=== PATIENT | male | born 1950 | race Caucasian/White ===

== ENCOUNTER 2019-12-22 04:59 | Inpatient (IN) ==
--- NOTE | 2019-12-17 18:07 | XRay Report ---
CLINICAL INFORMATION: Preop COMPARISON: 05/26/2017 TECHNIQUE: PA and Lateral views FINDINGS: The heart size, mediastinum and pulmonary vessels are unremarkable. The lungs are clear. There are no effusions. Mild chronic wedging mid lower thoracic spine is stable. IMPRESSION: Normal chest. Interpreted and Authenticated by: Aldo Baez 12/17/19
[2019-12-17 19:06] LABS: Prothrombin Time 12.9 sec (11.9-14.5)
[2019-12-17 19:18] LABS: Basophils # (Auto) 0.02 K/mcL (0.00-0.30); Basophils % (Auto) 0.3 % (0.0-2.0); Eosinophils # (Auto) 0.05 K/mcL (0.00-0.70); Eosinophils % (Auto) 0.7 % (0.0-7.0); Granulocytes % (Auto) 70.5 % (38.0-78.0); Hematocrit 37.7 % (40.1-51.0); Hemoglobin 11.6 g/dL (13.7-17.5); Lymphocytes # (Auto) 1.07 K/mcL (1.50-4.80); Lymphocytes % (Auto) 14.7 % (15.5-49.0); Mean Cell Volume 76.3 fL (80.0-100.0); Mean Corpuscular HGB Conc 30.8 g/dL (31.0-36.0); Monocytes # (Auto) 1.01 K/mcL (0.10-0.90); Monocytes % (Auto) 13.8 % (1.0-12.0); Platelet Count 101 K/mcL (140-440); RBC 4.94 M/mcL (4.63-6.08); Red Cell Distribution Width 15.8 % (11.5-14.5); WBC 7.3 K/mcL (4.50-11.00)
[2019-12-17 19:28] LABS: ALT/SGPT 63 U/l (0-40); AST/SGOT 89 U/l (0-37); Albumin/Globulin Ratio 0.9 (1.0-2.3); Alkaline Phosphatase 103 U/L (39-117); Bilirubin,Total 0.7 mg/dL (0.0-1.0); Blood Urea Nitrogen 14 mg/dl (8-23); Calcium 9.3 mg/dl (8.6-10.4); Carbon Dioxide 23 mmol/L (22-30); Chloride 97 mmol/L (96-108); Globulin 4.3 gm/dL (2.2-3.7); Glomerular Filtration Rate 69; Glucose 88 mg/dL (70-105)
[2019-12-22] MEDS ORDERED: SCOPOLAMINE 1 PATCH PATCH TOPICAL PRN (05:00)
[2019-12-22] MEDS ORDERED: IPRATROPIUM/ALBUTEROL 3 ML AMPUL.NEB NEB PRN ×3 (05:00→09:31)
[2019-12-22] MEDS ORDERED: metroNIDAZOLE 500 MG/100 ML BAG IV SCH ×2 (06:00→12:23)
[2019-12-22] MEDS ORDERED: CIPROFLOXACIN 400 MG/200 ML BAG IV SCH ×2 (06:00→12:23)
[2019-12-22] MEDS ORDERED: MAGNESIUM SULFATE 2 GM/50 ML BAG IV ONE ×3 (07:26→12:23)
[2019-12-22] MEDS ORDERED: ALBUMIN HUMAN 25 GM/100 ML BAG IV ONE ×3 (07:35→12:23)
[2019-12-22] MEDS ORDERED: ROPIVACAINE HCL/PF 20 ML VIAL IJ ONE (07:45)
[2019-12-22] MEDS ORDERED: SUGAMMADEX SODIUM 200 MG/2 ML VIAL IV ONE (07:45)
[2019-12-22] MEDS ORDERED: PHENYLEPHRINE 10 MG/ML VIAL IV ONE (07:45)
[2019-12-22] MEDS ORDERED: METOPROLOL TARTRATE 5 MG/5 ML VIAL IV ONE (07:45)
[2019-12-22] MEDS ORDERED: DEXAMETHASONE 10 MG/ML VIAL IV ONE (07:45)
[2019-12-22] MEDS ORDERED: GLYCOPYRROLATE 0.2 MG/ML VIAL IV ONE (07:45)
[2019-12-22] MEDS ORDERED: ESMOLOL 100 MG/10 ML VIAL IV ONE (07:45)
[2019-12-22] MEDS ORDERED: KETAMINE 100 MG/ML ML IV ONE (07:45)
[2019-12-22] MEDS ORDERED: ROCURONIUM 10 MG/ML ML IV ONE (07:45)
[2019-12-22] MEDS ORDERED: ONDANSETRON 4 MG/2 ML VIAL IV ONE (07:45)
[2019-12-22] MEDS ORDERED: MIDAZOLAM 2 MG/2 ML VIAL IV ONE (07:45)
[2019-12-22] MEDS ORDERED: fentaNYL 250 MCG/5 ML VIAL IV ONE (07:45)
[2019-12-22] MEDS ORDERED: PROPOFOL 200 MG/20 ML VIAL IV ONE (07:45)
[2019-12-22] MEDS ORDERED: LIDOCAINE HCL/PF 100 MG/5 ML SYRINGE IV ONE (07:45)
[2019-12-22] MEDS ORDERED: METHOCARBAMOL 1,000 MG/10 ML VIAL IV PRN ×2 (08:31→09:31)
[2019-12-22] MEDS ORDERED: ATROPINE SULFATE 0.4 MG/ML VIAL IV PRN (08:31)
[2019-12-22] MEDS ORDERED: HYDROmorphone 2 MG/ML VIAL IV PRN (08:31)
[2019-12-22] MEDS ORDERED: METOPROLOL TARTRATE 5 MG/5 ML VIAL IV PRN ×2 (08:31→09:31)
[2019-12-22] MEDS ORDERED: NALOXONE HCL 0.4 MG/ML VIAL IV PRN ×2 (08:31→09:31)
[2019-12-22] MEDS ORDERED: fentaNYL 100 MCG/2 ML VIAL IV PRN ×2 (08:31→09:31)
[2019-12-22] MEDS ORDERED: ePHEDrine 50 MG/ML AMPUL IV PRN (08:31)
[2019-12-22] MEDS ORDERED: ONDANSETRON 4 MG/2 ML VIAL IV PRN ×2 (08:31→12:23)
[2019-12-22] MEDS ORDERED: diphenhydrAMINE 50 MG/ML VIAL IV PRN (08:31)
[2019-12-22] MEDS ORDERED: PROMETHAZINE 25 MG/ML VIAL IV PRN (08:31)
[2019-12-22] MEDS ORDERED: FLUMAZENIL 0.1 MG/ML ML IV PRN ×2 (08:31→09:31)
[2019-12-22] MEDS ORDERED: LACTATED RINGERS 1,000 ML IV SCH ×2 (08:45→09:45)
[2019-12-22] MEDS ORDERED: LACTATED RINGERS 250 ML IV PRN (09:31)
[2019-12-22] MEDS ORDERED: LABETALOL 5 MG/ML ML IV PRN (09:31)
[2019-12-22] MEDS ORDERED: ACETAMINOPHEN 1,000 MG/100 ML BOTTLE IV ONE (09:31)
[2019-12-22] MEDS ORDERED: BACITRACIN 50,000 UNIT VIAL IR ONE (09:37)
--- NOTE | 2019-12-22 10:07 | Brief Operative Note ---
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
[2019-12-22] MEDS: HYDROmorphone 2 MG/ML VIAL IV PRN ×4 (12:50→21:07)
[2019-12-22] MEDS: METOCLOPRAMIDE 10 MG/2 ML VIAL IV SCH ×2 (12:50→17:36)
[2019-12-22] MEDS: LACTATED RINGERS 1,000 ML IV SCH ×2 (12:52→21:09)
[2019-12-22] MEDS: PIPERACILLIN SODIUM/TAZOBACTAM 3.375 GM in DEXTROSE 5% IN WATER 50 ML IV SCH ×2 (13:01→18:50)
[2019-12-22] MEDS: 0.9 % SODIUM CHLORIDE 10 ML SYRINGE IV SCH (14:16)
[2019-12-22] MEDS: metroNIDAZOLE 500 MG/100 ML BAG IV SCH ×2 (15:13→21:32)
[2019-12-22] MEDS: PANTOPRAZOLE 40 MG VIAL IV SCH (17:36)
[2019-12-23] MEDS: 0.9 % SODIUM CHLORIDE 10 ML SYRINGE IV SCH ×3 (00:30→14:30)
[2019-12-23] MEDS: PIPERACILLIN SODIUM/TAZOBACTAM 3.375 GM in DEXTROSE 5% IN WATER 50 ML IV SCH ×3 (00:31→11:10)
[2019-12-23] MEDS: METOCLOPRAMIDE 10 MG/2 ML VIAL IV SCH ×4 (00:37→17:33)
[2019-12-23] MEDS: HYDROmorphone 2 MG/ML VIAL IV PRN ×9 (00:38→23:01)
[2019-12-23] MEDS: metroNIDAZOLE 500 MG/100 ML BAG IV SCH ×3 (05:14→23:04)
[2019-12-23] MEDS: PANTOPRAZOLE 40 MG VIAL IV SCH ×2 (07:06→17:32)
[2019-12-23] MEDS: LACTATED RINGERS 1,000 ML IV SCH ×2 (07:07→14:39)
--- NOTE | 2019-12-23 13:09 | Surgical Pathology Report ---
HISTOLOGY SPECIMEN MICROSCOPIC DIAGNOSIS SOFT TISSUE, ABDOMINAL WALL, EXCISION: -- SKIN WITH GRANULATION TISSUE, FOREIGN BODY GIANT CELL REACTION AND MUCINOUS MATERIAL WITH DERMAL SUPERFICIAL AND DEEP PERIVASCULAR CHRONIC INFLAMMATION. -- NO PORTION OF BOWEL IDENTIFIED. -- NO DYSPLASIA OR MALIGNANCY IDENTIFIED. (EBD:adj) PROCEDURAL IMPRESSION Enterocutaneous fistula. GROSS DESCRIPTION Received in formalin labeled fistula, is a 4.5 x 2.5 by up to 2.4 cm white to pink-saleh soft tissue fragment. There is a 2.4 x 1.5 cm attached ellipse of white-saleh skin. Off-centered there is a 0.1 cm in diameter sunken area. The margin is inked black. Sectioning reveals a possible tract associated with the previously described sunken area on the skin surface. Property Staff Accountant sections submitted - two cassettes. (STS:sln) Electronically Signed by: Eve Erwin M.D.
[2019-12-23 13:11] LABS: Basophils # (Auto) 0.01 K/mcL (0.00-0.30); Basophils % (Auto) 0.1 % (0.0-2.0); Eosinophils # (Auto) 0 K/mcL (0.00-0.70); Eosinophils % (Auto) 0 % (0.0-7.0); Granulocytes % (Auto) 80.7 % (38.0-78.0); Hematocrit 28.2 % (40.1-51.0); Hemoglobin 8.8 g/dL (13.7-17.5); Lymphocytes # (Auto) 0.75 K/mcL (1.50-4.80); Lymphocytes % (Auto) 7.4 % (15.5-49.0); Mean Cell Volume 75.8 fL (80.0-100.0); Mean Corpuscular HGB Conc 31.2 g/dL (31.0-36.0); Mean Platelet Volume 12.1 fL (7.4-10.4); Monocytes % (Auto) 11.8 % (1.0-12.0); Platelet Count 102 K/mcL (140-440); RBC 3.72 M/mcL (4.63-6.08); Red Cell Distribution Width 15.9 % (11.5-14.5); WBC 10.1 K/mcL (4.50-11.00)
[2019-12-23 13:13] LABS: ALT/SGPT 30 U/l (0-40); AST/SGOT 41 U/l (0-37); Albumin 3.2 gm/dL (3.2-5.2); Albumin/Globulin Ratio 0.9 (1.0-2.3); Alkaline Phosphatase 66 U/L (39-117); Bilirubin,Direct 0.3 mg/dL (0.0-0.3); Bilirubin,Total 0.8 mg/dL (0.0-1.0); Blood Urea Nitrogen 12 mg/dl (8-23); Calcium 8.7 mg/dl (8.6-10.4); Carbon Dioxide 26 mmol/L (22-30); Chloride 101 mmol/L (96-108); Globulin 3.5 gm/dL (2.2-3.7); Glomerular Filtration Rate 69; Glucose 112 mg/dL (70-105); Lactate Dehydrogenase 189 U/L (94-250); Triglycerides 37 mg/dl (<150); Uric Acid 4.4 mg/dL (2.5-8.0)
[2019-12-23 13:16] LABS: Phosphorous 2.1 mg/dL (2.7-4.5)
[2019-12-23] MEDS: CEFEPIME 2 GM VIAL IV SCH (17:32)
--- NOTE | 2019-12-23 18:54 | General Surgery Progress Note ---
Subjective Narrative: Note initiated : 12/23/19 at 6:54 pm Service Date, if different from initiated Date: [] Patient: John Carbajal 69 y/o M admitted on 12/22/19 for Abdominal Wall Mesh Exploration with Resection. Chief Complaint: [] Objective Temp Pulse Resp BP Pulse Ox 99.1 F H 104 H 17 166/79 95 12/23/19 16:00 12/23/19 16:00 12/23/19 16:00 12/23/19 16:00 12/23/19 16:00 - Additional Data Intake & Output - Last 24 hours: Intake & Output 12/21/19 12/22/19 12/23/19 12/24/19 05:59 05:59 05:59 05:59 Intake Total 4727 2250 Output Total 7367 0220 Balance 2792 -290 Weight 160 lb 12.8 oz 172 lb 11.2 oz 172 lb 11.2 oz - Labs 12/23/19 12:15 12/23/19 12:16 Diabetes panel 12/23/19 Range/Units 12:16 Sodium 136 (133-145) mmol/L Potassium 4.2 (3.3-5.1) mmol/L Chloride 101 (96-108) mmol/L Carbon Dioxide 26 (22-30) mmol/L BUN 12 (8-23) mg/dl Creatinine 1.1 (0.7-1.2) mg/dl Glucose 112 H (70-105) mg/dL Calcium 8.7 (8.6-10.4) mg/dl AST 41 H (0-37) U/l ALT 30 (0-40) U/l Alkaline Phosphatase 66 (39-117) U/L Total Protein 6.7 (5.9-8.4) gm/dL Albumin 3.2 (3.2-5.2) gm/dL Triglycerides 37 (<150) mg/dl Calcium panel 12/23/19 Range/Units 12:16 Calcium 8.7 (8.6-10.4) mg/dl Phosphorus 2.1 L (2.7-4.5) mg/dL Albumin 3.2 (3.2-5.2) gm/dL Pituitary panel 12/23/19 Range/Units 12:16 Sodium 136 (133-145) mmol/L Potassium 4.2 (3.3-5.1) mmol/L Chloride 101 (96-108) mmol/L Carbon Dioxide 26 (22-30) mmol/L BUN 12 (8-23) mg/dl Creatinine 1.1 (0.7-1.2) mg/dl Glucose 112 H (70-105) mg/dL Calcium 8.7 (8.6-10.4) mg/dl Adrenal panel 12/23/19 Range/Units 12:16 Sodium 136 (133-145) mmol/L Potassium 4.2 (3.3-5.1) mmol/L Chloride 101 (96-108) mmol/L Carbon Dioxide 26 (22-30) mmol/L BUN 12 (8-23) mg/dl Creatinine 1.1 (0.7-1.2) mg/dl Glucose 112 H (70-105) mg/dL Calcium 8.7 (8.6-10.4) mg/dl Total Bilirubin 0.8 (0.0-1.0) mg/dL AST 41 H (0-37) U/l ALT 30 (0-40) U/l Alkaline Phosphatase 66 (39-117) U/L Total Protein 6.7 (5.9-8.4) gm/dL Albumin 3.2 (3.2-5.2) gm/dL Assessment and Plan - Time Spent With Patient Total time spent is greater than 50% in coordination of care (as documented) at patient's floor/unit and/or counseling patient:
[2019-12-24] MEDS: CEFEPIME 2 GM VIAL IV SCH ×4 (00:50→23:40)
[2019-12-24] MEDS: LACTATED RINGERS 1,000 ML IV SCH ×5 (00:52→20:11)
[2019-12-24] MEDS: 0.9 % SODIUM CHLORIDE 10 ML SYRINGE IV SCH ×4 (00:52→22:29)
[2019-12-24] MEDS: METOCLOPRAMIDE 10 MG/2 ML VIAL IV SCH ×5 (00:53→23:45)
[2019-12-24] MEDS: HYDROmorphone 2 MG/ML VIAL IV PRN ×7 (01:13→22:24)
[2019-12-24] MEDS: metroNIDAZOLE 500 MG/100 ML BAG IV SCH ×3 (05:44→22:35)
[2019-12-24 06:59] LABS: Basophils # (Auto) 0.03 K/mcL (0.00-0.30); Basophils % (Auto) 0.3 % (0.0-2.0); Eosinophils # (Auto) 0.06 K/mcL (0.00-0.70); Eosinophils % (Auto) 0.6 % (0.0-7.0); Granulocytes % (Auto) 77.5 % (38.0-78.0); Hematocrit 28.3 % (40.1-51.0); Hemoglobin 8.7 g/dL (13.7-17.5); Lymphocytes # (Auto) 0.84 K/mcL (1.50-4.80); Mean Cell Volume 77.1 fL (80.0-100.0); Mean Corpuscular HGB Conc 30.7 g/dL (31.0-36.0); Mean Platelet Volume 10.7 fL (7.4-10.4); Monocytes # (Auto) 1.17 K/mcL (0.10-0.90); Monocytes % (Auto) 12.6 % (1.0-12.0); Platelet Count 89 K/mcL (140-440); RBC 3.67 M/mcL (4.63-6.08); Red Cell Distribution Width 15.9 % (11.5-14.5); WBC 9.3 K/mcL (4.50-11.00)
[2019-12-24 07:37] LABS: ALT/SGPT 26 U/l (0-40); AST/SGOT 39 U/l (0-37); Albumin 3.1 gm/dL (3.2-5.2); Albumin/Globulin Ratio 0.9 (1.0-2.3); Alkaline Phosphatase 62 U/L (39-117); Bilirubin,Direct 0.3 mg/dL (0.0-0.3); Bilirubin,Total 0.7 mg/dL (0.0-1.0); Blood Urea Nitrogen 11 mg/dl (8-23); Calcium 8.5 mg/dl (8.6-10.4); Carbon Dioxide 25 mmol/L (22-30); Chloride 100 mmol/L (96-108); Globulin 3.4 gm/dL (2.2-3.7); Glomerular Filtration Rate 77; Glucose 90 mg/dL (70-105); Lactate Dehydrogenase 152 U/L (94-250); Triglycerides 56 mg/dl (<150); Uric Acid 4.6 mg/dL (2.5-8.0)
[2019-12-24 07:39] LABS: Phosphorous 2.1 mg/dL (2.7-4.5)
[2019-12-24] MEDS: PANTOPRAZOLE 40 MG VIAL IV SCH ×2 (09:37→18:02)
[2019-12-24] MEDS: POTASSIUM PHOSPHATE 40 MEQ in DEXTROSE 5% IN WATER 500 ML IV SCH ×2 (16:00→23:47)
--- NOTE | 2019-12-24 16:10 | General Surgery Progress Note ---
Subjective Patient reports: feels better, pain is less, no flatus, no bowel movement, afebrile Narrative: Note initiated : 12/24/19 at 4:07 pm Service Date, if different from initiated Date: [] Patient: John Carbajal 69 y/o M admitted on 12/22/19 for Abdominal Wall Mesh Exploration with Resection. Chief Complaint: [Patient states that he feels stable. He has not had flatus or bowel movement. He denies nausea. White blood count 9.3; hemoglobin 8.7; hematocrit 28.3, phosphorus 3.1.] Objective Temp Pulse Resp BP Pulse Ox 99.2 F H 102 H 14 156/88 96 12/24/19 11:36 12/24/19 11:36 12/24/19 11:36 12/24/19 11:36 12/24/19 11:36 - Additional Data Intake & Output - Last 24 hours: Intake & Output 12/22/19 12/23/19 12/24/19 12/25/19 05:59 05:59 05:59 05:59 Intake Total 4760 3410 1200 Output Total 1968 3765 650 Balance 2792 -355 550 Weight 160 lb 12.8 oz 172 lb 11.2 oz 177 lb - General physical appearance well developed, well nourished, no distress, moderate pain - Eyes PERRL, normal ocular movement - ENT normal pinna, normal nares, normal mucosa, no hearing loss, no congestion - Neck no masses, no bruits, trachea midline, no lymphadenopathy, no venous distension - Respiratory normal expansion, normal respiratory effort, clear to auscultation - Cardiovascular Cardiovascular exam: Present: normal rate and rhythm, RRR, +S1, +S2 (Zyrtec). Absent: JVD, tachycardia - Abdomen non tender, bowel sounds (present), surgical scars (none), masses (none) - Integumentary no rash, no growths, no abnormal pigmentation - Neurologic normal coordination, normal sensation - Musculoskeletal normal gait, normal posture - Psychiatric oriented to time, oriented to person, oriented to place, speech is normal, memory intact - Labs 12/24/19 06:01 12/24/19 06:01 Diabetes panel 12/24/19 Range/Units 06:01 Sodium 135 (133-145) mmol/L Potassium 3.9 (3.3-5.1) mmol/L Chloride 100 (96-108) mmol/L Carbon Dioxide 25 (22-30) mmol/L BUN 11 (8-23) mg/dl Creatinine 1.0 (0.7-1.2) mg/dl Glucose 90 (70-105) mg/dL Calcium 8.5 L (8.6-10.4) mg/dl AST 39 H (0-37) U/l ALT 26 (0-40) U/l Alkaline Phosphatase 62 (39-117) U/L Total Protein 6.5 (5.9-8.4) gm/dL Albumin 3.1 L (3.2-5.2) gm/dL Triglycerides 56 (<150) mg/dl Calcium panel 12/24/19 Range/Units 06:01 Calcium 8.5 L (8.6-10.4) mg/dl Phosphorus 2.1 L (2.7-4.5) mg/dL Albumin 3.1 L (3.2-5.2) gm/dL Pituitary panel 12/24/19 Range/Units 06:01 Sodium 135 (133-145) mmol/L Potassium 3.9 (3.3-5.1) mmol/L Chloride 100 (96-108) mmol/L Carbon Dioxide 25 (22-30) mmol/L BUN 11 (8-23) mg/dl Creatinine 1.0 (0.7-1.2) mg/dl Glucose 90 (70-105) mg/dL Calcium 8.5 L (8.6-10.4) mg/dl Adrenal panel 12/24/19 Range/Units 06:01 Sodium 135 (133-145) mmol/L Potassium 3.9 (3.3-5.1) mmol/L Chloride 100 (96-108) mmol/L Carbon Dioxide 25 (22-30) mmol/L BUN 11 (8-23) mg/dl Creatinine 1.0 (0.7-1.2) mg/dl Glucose 90 (70-105) mg/dL Calcium 8.5 L (8.6-10.4) mg/dl Total Bilirubin 0.7 (0.0-1.0) mg/dL AST 39 H (0-37) U/l ALT 26 (0-40) U/l Alkaline Phosphatase 62 (39-117) U/L Total Protein 6.5 (5.9-8.4) gm/dL Albumin 3.1 L (3.2-5.2) gm/dL Assessment and Plan (1) Enterocutaneous fistula Status: Acute Assessment and plan: Continue present therapy. Discontinue Juarez catheter. Replace potassium phosphate Current Visit: Yes (2) Hypertension Status: Chronic Current Visit: No (3) Gastroesophageal reflux disease with stricture Status: Chronic Current Visit: No - Time Spent With Patient Total time spent is greater than 50% in coordination of care (as documented) at patient's floor/unit and/or counseling patient:
[2019-12-25] MEDS: HYDROmorphone 2 MG/ML VIAL IV PRN ×6 (00:19→20:53)
[2019-12-25] MEDS: LACTATED RINGERS 1,000 ML IV SCH ×4 (04:49→16:42)
[2019-12-25] MEDS: metroNIDAZOLE 500 MG/100 ML BAG IV SCH ×3 (06:27→22:07)
[2019-12-25] MEDS: 0.9 % SODIUM CHLORIDE 10 ML SYRINGE IV SCH ×3 (06:27→22:08)
[2019-12-25] MEDS: METOCLOPRAMIDE 10 MG/2 ML VIAL IV SCH ×3 (06:27→18:44)
[2019-12-25 06:44] LABS: Basophils # (Auto) 0.01 K/mcL (0.00-0.30); Basophils % (Auto) 0.1 % (0.0-2.0); Eosinophils # (Auto) 0.14 K/mcL (0.00-0.70); Eosinophils % (Auto) 2.1 % (0.0-7.0); Granulocytes % (Auto) 76.9 % (38.0-78.0); Hematocrit 26.7 % (40.1-51.0); Hemoglobin 8.3 g/dL (13.7-17.5); Lymphocytes # (Auto) 0.58 K/mcL (1.50-4.80); Lymphocytes % (Auto) 8.7 % (15.5-49.0); Mean Cell Volume 75.4 fL (80.0-100.0); Mean Corpuscular HGB Conc 31.1 g/dL (31.0-36.0); Mean Platelet Volume 10.8 fL (7.4-10.4); Monocytes # (Auto) 0.82 K/mcL (0.10-0.90); Monocytes % (Auto) 12.2 % (1.0-12.0); Platelet Count 111 K/mcL (140-440); RBC 3.54 M/mcL (4.63-6.08); Red Cell Distribution Width 15.6 % (11.5-14.5); WBC 6.7 K/mcL (4.50-11.00)
[2019-12-25 07:14] LABS: ALT/SGPT 23 U/l (0-40); AST/SGOT 37 U/l (0-37); Albumin 2.8 gm/dL (3.2-5.2); Albumin/Globulin Ratio 0.9 (1.0-2.3); Alkaline Phosphatase 62 U/L (39-117); Bilirubin,Direct 0.4 mg/dL (0.0-0.3); Bilirubin,Total 0.7 mg/dL (0.0-1.0); Blood Urea Nitrogen 8 mg/dl (8-23); Calcium 8.6 mg/dl (8.6-10.4); Carbon Dioxide 27 mmol/L (22-30); Chloride 94 mmol/L (96-108); Globulin 3.2 gm/dL (2.2-3.7); Glomerular Filtration Rate 92; Glucose 113 mg/dL (70-105); Lactate Dehydrogenase 183 U/L (94-250); Phosphorous 3.1 mg/dL (2.7-4.5); Triglycerides 46 mg/dl (<150); Uric Acid 4.7 mg/dL (2.5-8.0)
[2019-12-25] MEDS: CEFEPIME 2 GM VIAL IV SCH ×2 (09:00→16:34)
[2019-12-25] MEDS: PANTOPRAZOLE 40 MG VIAL IV SCH ×2 (09:00→16:45)
--- NOTE | 2019-12-25 13:52 | General Surgery Progress Note ---
Subjective Patient reports: feels better, pain is less, tolerating liquids well, flatus, no bowel movement, afebrile Narrative: Note initiated : 12/25/19 at 1:50 pm Service Date, if different from initiated Date: [] Patient: John Carbajal 69 y/o M admitted on 12/22/19 for Abdominal Wall Mesh Exploration with Resection. Chief Complaint: [Patient is slowly improving. He has been afebrile and is having less abdominal distention. He is started passing gas yesterday and has continued. He's not had a bowel movement so for. CAM drainage is decreasing. White blood count 617, hemoglobin 8.3, hematocrit 26.7, magnesium 1.5] Objective Temp Pulse Resp BP Pulse Ox 99.2 F H 86 16 170/87 98 12/25/19 12:00 12/25/19 12:00 12/25/19 12:00 12/25/19 12:00 12/25/19 12:00 - Additional Data Intake & Output - Last 24 hours: Intake & Output 12/23/19 12/24/19 12/25/19 12/26/19 05:59 05:59 05:59 05:59 Intake Total 4760 3410 4224.0909 685 Output Total 1968 3765 2578 225 Balance 2792 -355 1646.0909 460 Weight 172 lb 11.2 oz 177 lb 177 lb 9.6 oz - General physical appearance well developed, well nourished, no distress - Eyes PERRL, normal ocular movement - ENT normal pinna, normal nares, normal mucosa, no hearing loss, no congestion - Neck no masses, no bruits, trachea midline, no lymphadenopathy, no venous distension - Respiratory normal expansion, normal respiratory effort, clear to auscultation - Cardiovascular Cardiovascular exam: Present: normal rate and rhythm, RRR, +S1, +S2. Absent: JVD, tachycardia - Abdomen tender (mild incisional tenderness; active bowel sounds; less distention), bowel sounds (present), surgical scars (none), masses (none) - Integumentary no rash, no growths, no abnormal pigmentation - Neurologic normal coordination, normal sensation - Musculoskeletal normal gait, normal posture - Psychiatric oriented to time, oriented to person, oriented to place, speech is normal, memor y intact - Labs 12/25/19 05:56 12/25/19 05:56 Diabetes panel 12/25/19 Range/Units 05:56 Sodium 131 L (133-145) mmol/L Potassium 3.7 (3.3-5.1) mmol/L Chloride 94 L (96-108) mmol/L Carbon Dioxide 27 (22-30) mmol/L BUN 8 (8-23) mg/dl Creatinine 0.8 (0.7-1.2) mg/dl Glucose 113 H (70-105) mg/dL Calcium 8.6 (8.6-10.4) mg/dl AST 37 (0-37) U/l ALT 23 (0-40) U/l Alkaline Phosphatase 62 (39-117) U/L Total Protein 6.0 (5.9-8.4) gm/dL Albumin 2.8 L (3.2-5.2) gm/dL Triglycerides 46 (<150) mg/dl Calcium panel 12/25/19 Range/Units 05:56 Calcium 8.6 (8.6-10.4) mg/dl Phosphorus 3.1 (2.7-4.5) mg/dL Albumin 2.8 L (3.2-5.2) gm/dL Pituitary panel 12/25/19 Range/Units 05:56 Sodium 131 L (133-145) mmol/L Potassium 3.7 (3.3-5.1) mmol/L Chloride 94 L (96-108) mmol/L Carbon Dioxide 27 (22-30) mmol/L BUN 8 (8-23) mg/dl Creatinine 0.8 (0.7-1.2) mg/dl Glucose 113 H (70-105) mg/dL Calcium 8.6 (8.6-10.4) mg/dl Adrenal panel 12/25/19 Range/Units 05:56 Sodium 131 L (133-145) mmol/L Potassium 3.7 (3.3-5.1) mmol/L Chloride 94 L (96-108) mmol/L Carbon Dioxide 27 (22-30) mmol/L BUN 8 (8-23) mg/dl Creatinine 0.8 (0.7-1.2) mg/dl Glucose 113 H (70-105) mg/dL Calcium 8.6 (8.6-10.4) mg/dl Total Bilirubin 0.7 (0.0-1.0) mg/dL AST 37 (0-37) U/l ALT 23 (0-40) U/l Alkaline Phosphatase 62 (39-117) U/L Total Protein 6.0 (5.9-8.4) gm/dL Albumin 2.8 L (3.2-5.2) gm/dL Assessment and Plan (1) Enterocutaneous fistula Status: Acute Assessment and plan: Continue present therapy. Magnesium rider. Clear liquids Current Visit: Yes (2) Hypertension Status: Chronic Current Visit: No (3) Gastroesophageal reflux disease with stricture Status: Chronic Current Visit: No - Time Spent With Patient Total time spent is greater than 50% in coordination of care (as documented) at patient's floor/unit and/or counseling patient:
[2019-12-25] MEDS ORDERED: MAGNESIUM SULFATE 4 GM/100 ML BAG IV ONE (14:15)
[2019-12-26] MEDS: HYDROmorphone 2 MG/ML VIAL IV PRN ×7 (01:07→23:47)
[2019-12-26] MEDS: LACTATED RINGERS 1,000 ML IV SCH ×4 (01:09→19:09)
[2019-12-26] MEDS: METOCLOPRAMIDE 10 MG/2 ML VIAL IV SCH ×5 (05:49→23:47)
[2019-12-26] MEDS: metroNIDAZOLE 500 MG/100 ML BAG IV SCH ×3 (05:49→21:51)
[2019-12-26] MEDS: 0.9 % SODIUM CHLORIDE 10 ML SYRINGE IV SCH ×3 (05:50→21:14)
[2019-12-26 06:27] LABS: Basophils # (Auto) 0.01 K/mcL (0.00-0.30); Basophils % (Auto) 0.2 % (0.0-2.0); Eosinophils # (Auto) 0.21 K/mcL (0.00-0.70); Eosinophils % (Auto) 3.8 % (0.0-7.0); Granulocytes % (Auto) 68.2 % (38.0-78.0); Hematocrit 27.6 % (40.1-51.0); Hemoglobin 8.5 g/dL (13.7-17.5); Lymphocytes % (Auto) 10.9 % (15.5-49.0); Mean Cell Volume 76.2 fL (80.0-100.0); Mean Corpuscular HGB Conc 30.8 g/dL (31.0-36.0); Mean Platelet Volume 10.9 fL (7.4-10.4); Monocytes # (Auto) 0.93 K/mcL (0.10-0.90); Monocytes % (Auto) 16.9 % (1.0-12.0); Platelet Count 118 K/mcL (140-440); RBC 3.62 M/mcL (4.63-6.08); Red Cell Distribution Width 15.8 % (11.5-14.5); WBC 5.5 K/mcL (4.50-11.00)
[2019-12-26 06:58] LABS: ALT/SGPT 23 U/l (0-40); AST/SGOT 42 U/l (0-37); Albumin 2.8 gm/dL (3.2-5.2); Albumin/Globulin Ratio 0.9 (1.0-2.3); Alkaline Phosphatase 61 U/L (39-117); Bilirubin,Total 0.5 mg/dL (0.0-1.0); Blood Urea Nitrogen 9 mg/dl (8-23); Calcium 8.5 mg/dl (8.6-10.4); Carbon Dioxide 28 mmol/L (22-30); Globulin 3.1 gm/dL (2.2-3.7); Glomerular Filtration Rate 87; Glucose 102 mg/dL (70-105); Lactate Dehydrogenase 166 U/L (94-250); Triglycerides 61 mg/dl (<150)
[2019-12-26 07:00] LABS: Bilirubin,Direct 0.3 mg/dL (0.0-0.3); Chloride 93 mmol/L (96-108); Phosphorous 1.9 mg/dL (2.7-4.5)
[2019-12-26] MEDS: PANTOPRAZOLE 40 MG VIAL IV SCH ×2 (08:43→17:31)
[2019-12-26] MEDS: CEFEPIME 2 GM VIAL IV SCH ×2 (09:08)
--- NOTE | 2019-12-26 13:20 | General Surgery Progress Note ---
Subjective Patient reports: feels better, pain is less, flatus, afebrile Narrative: Note initiated : 12/26/19 at 1:18 pm Service Date, if different from initiated Date: [] Patient: John Carbajal 69 y/o M admitted on 12/22/19 for Abdominal Wall Mesh Exploration with Resection. Chief Complaint: [patient continues to improve. He tolerated the liquids without difficulty. White blood count 5.5, hemoglobin 8.5, hematocrit 27.6, phosphorus 1.9. Pain is well controlled.] Objective Temp Pulse Resp BP Pulse Ox 98.8 F 85 16 146/78 90 12/26/19 12:00 12/26/19 08:00 12/26/19 12:00 12/26/19 12:00 12/26/19 12:00 - Additional Data Intake & Output - Last 24 hours: Intake & Output 12/24/19 12/25/19 12/26/19 12/27/19 05:59 05:59 05:59 05:59 Intake Total 3410 4224.0909 3010 1198 Output Total 3765 2578 2501 870 Balance -355 1646.0909 509 328 Weight 177 lb 177 lb 9.6 oz 177 lb 14.4 oz - General physical appearance well developed, well nourished, no distress, moderate pain - Eyes PERRL, normal ocular movement - ENT normal pinna, normal nares, normal mucosa, no hearing loss, no congestion - Neck no masses, no bruits, trachea midline, no lymphadenopathy, no venous distension - Respiratory normal expansion, normal respiratory effort, clear to auscultation - Cardiovascular Cardiovascular exam: Present: normal rate and rhythm, RRR, +S1, +S2. Absent: JVD, tachycardia - Abdomen non tender, tender (mild incisional tenderness; good active bowel sounds; incision looks good), bowel sounds (present), surgical scars (none), masses (none) - Integumentary no rash (. We will), no growths, no abnormal pigmentation - Neurologic normal coordination, normal sensation - Musculoskeletal normal gait, normal posture - Psychiatric oriented to time, oriented to person, oriented to place, speech is normal, memory intact - Labs 12/26/19 05:38 12/26/19 05:38 Diabetes panel 12/26/19 Range/Units 05:38 Sodium 131 L (133-145) mmol/L Potassium 3.7 (3.3-5.1) mmol/L Chloride 93 L (96-108) mmol/L Carbon Dioxide 28 (22-30) mmol/L BUN 9 (8-23) mg/dl Creatinine 0.9 (0.7-1.2) mg/dl Glucose 102 (70-105) mg/dL Calcium 8.5 L (8.6-10.4) mg/dl AST 42 H (0-37) U/l ALT 23 (0-40) U/l Alkaline Phosphatase 61 (39-117) U/L Total Protein 5.9 (5.9-8.4) gm/dL Albumin 2.8 L (3.2-5.2) gm/dL Triglycerides 61 (<150) mg/dl Calcium panel 12/26/19 Range/Units 05:38 Calcium 8.5 L (8.6-10.4) mg/dl Phosphorus 1.9 L (2.7-4.5) mg/dL Albumin 2.8 L (3.2-5.2) gm/dL Pituitary panel 12/26/19 Range/Units 05:38 Sodium 131 L (133-145) mmol/L Potassium 3.7 (3.3-5.1) mmol/L Chloride 93 L (96-108) mmol/L Carbon Dioxide 28 (22-30) mmol/L BUN 9 (8-23) mg/dl Creatinine 0.9 (0.7-1.2) mg/dl Glucose 102 (70-105) mg/dL Calcium 8.5 L (8.6-10.4) mg/dl Adrenal panel 12/26/19 Range/Units 05:38 Sodium 131 L (133-145) mmol/L Potassium 3.7 (3.3-5.1) mmol/L Chloride 93 L (96-108) mmol/L Carbon Dioxide 28 (22-30) mmol/L BUN 9 (8-23) mg/dl Creatinine 0.9 (0.7-1.2) mg/dl Glucose 102 (70-105) mg/dL Calcium 8.5 L (8.6-10.4) mg/dl Total Bilirubin 0.5 (0.0-1.0) mg/dL AST 42 H (0-37) U/l ALT 23 (0-40) U/l Alkaline Phosphatase 61 (39-117) U/L Total Protein 5.9 (5.9-8.4) gm/dL Albumin 2.8 L (3.2-5.2) gm/dL Assessment and Plan (1) Enterocutaneous fistula Status: Acute Assessment and plan: Continue present therapy. Potassium phosphate right ear. Clear liquids. Switch antibiotics to clindamycin Current Visit: Yes (2) Hypertension Status: Chronic Current Visit: No (3) Gastroesophageal reflux disease with stricture Status: Chronic Current Visit: No - Time Spent With Patient Total time spent is greater than 50% in coordination of care (as documented) at patient's floor/unit and/or counseling patient:
[2019-12-26] MEDS ORDERED: POTASSIUM PHOSPHATE 40 MEQ in DEXTROSE 5% IN WATER 500 ML IV ONE (13:45)
[2019-12-26] MEDS: CLINDAMYCIN 600 MG in DEXTROSE 5% IN WATER 50 ML IV SCH ×3 (15:13→23:48)
[2019-12-26] MEDS: MAGNESIUM HYDROXIDE 30 ML ORAL.SUSP PO SCH ×3 (15:16→21:14)
[2019-12-27] MEDS: HYDROmorphone 2 MG/ML VIAL IV PRN ×3 (03:13→15:19)
[2019-12-27] MEDS: CLINDAMYCIN 600 MG in DEXTROSE 5% IN WATER 50 ML IV SCH ×2 (06:05→12:17)
[2019-12-27] MEDS: 0.9 % SODIUM CHLORIDE 10 ML SYRINGE IV SCH ×2 (06:06→15:20)
[2019-12-27] MEDS: METOCLOPRAMIDE 10 MG/2 ML VIAL IV SCH ×2 (06:06→12:17)
[2019-12-27] MEDS: metroNIDAZOLE 500 MG/100 ML BAG IV SCH ×2 (06:47→15:20)
[2019-12-27] MEDS: PANTOPRAZOLE 40 MG VIAL IV SCH (07:10)
[2019-12-27] MEDS ORDERED: oxyCODONE/APAP 10/325MG TABLET PO PRN (08:16)
[2019-12-27] MEDS: LACTATED RINGERS 1,000 ML IV SCH (09:38)
--- NOTE | 2019-12-27 15:19 | General Surgery Progress Note ---
Subjective Patient reports: feels better, pain is less, tolerating liquids well, flatus, bowel movement, afebrile Narrative: Note initiated : 12/27/19 at 3:15 pm Service Date, if different from initiated Date: [] Patient: John Carbajal 69 y/o M admitted on 12/22/19 for Abdominal Wall Mesh Exploration with Resection. Chief Complaint: [patient continues to improve. He has much less pain. He said flatus and multiple bowel movements. He denies nausea. He has been afebrile. His incision looks good. patient is stable for discharge. "] Objective Temp Pulse Resp BP Pulse Ox 98.2 F 84 16 164/85 97 12/27/19 11:29 12/27/19 11:29 12/27/19 11:29 12/27/19 11:29 12/27/19 11:29 - Additional Data Intake & Output - Last 24 hours: Intake & Output 12/25/19 12/26/19 12/27/19 12/28/19 05:59 05:59 05:59 05:59 Intake Total 4224.0909 3010 4369.0909 878 Output Total 2578 2501 2998 625 Balance 1646.0909 509 1371.0909 253 Weight 177 lb 9.6 oz 177 lb 14.4 oz 177 lb 14.4 oz - General physical appearance well developed, well nourished, no distress - Eyes PERRL, normal ocular movement - ENT normal pinna (initiated), normal nares, normal mucosa, no hearing loss, no congestion - Neck no masses (hospital), no bruits, trachea midline, no lymphadenopathy, no venous distension - Respiratory normal expansion, normal respiratory effort, clear to auscultation - Cardiovascular Cardiovascular exam: Present: normal rate and rhythm (dizzinessleft), RRR, +S1, +S2 (. She will be). Absent: JVD, tachycardia - Abdomen non tender, bowel sounds (present), surgical scars (none), masses (none) - Rectum normal sphincter tone, no hemorrhoids, no tenderness, no masses, no bleeding - Integumentary no rash, no growths, no abnormal pigmentation - Neurologic normal coordination, normal sensation - Musculoskeletal normal gait, normal posture - Psychiatric oriented to time, oriented to person, oriented to place, speech is normal, memory intact - Labs 12/26/19 05:38 12/26/19 05:38 Assessment and Plan (1) Enterocutaneous fistula Status: Acute Assessment and plan: Continue present therapy. Stable for discharge Current Visit: Yes (2) Hypertension Status: Chronic Current Visit: No (3) Gastroesophageal reflux disease with stricture Status: Chronic Current Visit: No - Time Spent With Patient Total time spent is greater than 50% in coordination of care (as documented) at patient's floor/unit and/or counseling patient:
--- NOTE | 2019-12-27 16:18 | Discharge Summary ---
Providers - Providers Patient information: Note initiated : 12/27/19 at 4:16 pm Service Date, if different from initiated Date: [] Patient: John Carbajal 69 y/o M admitted on 12/22/19 for Abdominal Wall Mesh Exploration with Resection. Chief Complaint: [] Date of admission: 01/22/20 Discharge date: 12/27/19 Attending physician: Jackson Lundberg Hospitalization Hospital Course: 61-year-old male who developed a long standing enterocutaneous fistula. He was admitted postprocedure. Status post laparotomy with adhesion lysis and removal of mesh graft 2 with primary closure of abdominal wall supported by a Vicryl mesh graft. Patient has done well. He had ileus for about 3 days but is now having bowel movements and tolerating diet. He is stable and can be discharged home. Cultures grew out coagulase-negative Staphylococcus. Discharge diagnosis: enterocutaneous fistula Secondary discharge diagnosis: Abdominal wall and mesh graft infection Reason for admission: enterocutaneous fistula and mesh graft infection Procedures: Exploratory laparotomy with adhesion lysis. Explantation of mesh graft 2. Primary closure of abdominal wall incisional hernia Pertinent studies/significant findings: None Complications: None Exam Temp Pulse Resp BP Pulse Ox 99.1 F H 97 H 18 165/89 99 12/27/19 15:54 12/27/19 15:54 12/27/19 15:54 12/27/19 15:54 12/27/19 15:54 - General physical appearance well developed, well nourished, no distress - Eyes PERRL, normal ocular movement - ENT normal pinna, normal nares, normal mucosa, no hearing loss, no congestion - Head Head exam IM: Present: atraumatic, normocephalic - Neck no masses, no bruits, trachea midline, no lymphadenopathy, no venous distension - Cardiovascular Cardiovascular exam IM: Present: normal rate and rhythm - Respiratory normal expansion, normal respiratory effort, clear to percussion, clear to auscultation - Abdomen Abdomen: Present: soft, tender (mild tenderness of incision but with evidence of good healing and no evidence of infection; CAM drains with serous drainage), bowel sounds Hernia: Present: none - Genitourinary Present: normal penis with no external lesions - Integumentary Present: no rash, no growths, no abnormal pigmentation - Neurologic Present: normal coordination, normal sensation - Musculoskeletal Present: normal gait, normal posture - Psychiatric Present: oriented to time, oriented to person, oriented to place, speech is normal, memory intact Discharge Plan - Patient/Caregiver Discharge Instructions Activity: increase activity as tolerated Diet: Regular Diet Prescriptions: Clindamycin [Cleocin] 300 mg PO QID #60 cap Transmission Status: Received by [facility] oxyCODONE HCL [Oxycodone HCl] 10 tab PO Q4HP PRN #60 tab PRN Reason: Pain Level > 6 Transmission Status: Received by [facility] - Follow up Plan Follow up with: Jackson Lundberg MD [Physician] - 01/10/20 10:45 am Disposition: Home, Self-Care Prognosis: Good Rehab Potential: Good Overall status at discharge: patient is progressing back to baseline Pending Studies Resuscitation Status Full Code Diet Full Liquid Diet Start [place] Dec 26 1321 Hydromorphone HCl (Dilaudid) 1 mg IV Q2HP PRN; Protocol PRN Reason: Per Pain Protocol Last Admin: 12/27/19 15:19 Dose: 1 mg Documented by: Admin: 12/27/19 08:54 Dose: 1 mg Documented by: Admin: 12/27/19 03:13 Dose: 1 mg Documented by: Admin: 12/26/19 23:47 Dose: 1 mg Documented by: Admin: 12/26/19 21:21 Dose: 1 mg Documented by: Admin: 12/26/19 17:32 Dose: 1 mg Documented by: Admin: 12/26/19 12:57 Dose: 1 mg Documented by: Admin: 12/26/19 08:53 Dose: 1 mg Documented by: Admin: 12/26/19 04:46 Dose: 1 mg Documented by: Admin: 12/26/19 01:07 Dose: 1 mg Documented by: Admin: 12/25/19 20:53 Dose: 1 mg Documented by: Admin: 12/25/19 15:52 Dose: 1 mg Documented by: Admin: 12/25/19 12:52 Dose: 1 mg Documented by: Admin: 12/25/19 07:08 Dose: 1 mg Documented by: Admin: 12/25/19 04:07 Dose: 1 mg Documented by: Admin: 12/25/19 00:19 Dose: 1 mg Documented by: Admin: 12/24/19 22:24 Dose: 1 mg Documented by: Admin: 12/24/19 20:05 Dose: 1 mg Documented by: Admin: 12/24/19 15:34 Dose: 1 mg Documented by: [email or web address] Admin: 12/24/19 12:24 Dose: 1 mg Documented by: Admin: 12/24/19 05:51 Dose: 1 mg Documented by: Admin: 12/24/19 03:56 Dose: 1 mg Documented by: Admin: 12/24/19 01:13 Dose: 1 mg Documented by: Admin: 12/23/19 23:01 Dose: 1 mg Documented by: Admin: 12/23/19 20:47 Dose: 1 mg Documented by: Admin: 12/23/19 17:33 Dose: 1 mg Documented by: Admin: 12/23/19 14:38 Dose: 1 mg Documented by: Admin: 12/23/19 12:14 Dose: 1 mg Documented by: Admin: 12/23/19 10:06 Dose: 1 mg Documented by: Admin: 12/23/19 07:06 Dose: 1 mg Documented by: Admin: 12/23/19 03:17 Dose: 1 mg Documented by: Admin: 12/23/19 00:38 Dose: 1 mg Documented by: Admin: 12/22/19 21:07 Dose: 1 mg Documented by: Admin: 12/22/19 17:36 Dose: 1 mg Documented by: Admin: 12/22/19 15:12 Dose: 1 mg Documented by: Admin: 12/22/19 12:50 Dose: 1 mg Documented by: RAS Metronidazole (Flagyl) 500 mg in 100 mls @ 100 mls/hr IV Q8H GEORGETTE; Protocol Last Admin: 12/27/19 15:20 Dose: 100 mls/hr Documented by: Infusion: 12/27/19 07:47 Dose: 0 mls/hr Documented by: [email or web address] Admin: 12/27/19 06:47 Dose: 100 mls/hr Documented by: [email or web address] Infusion: 12/26/19 22:51 Dose: 100 mls/hr Documented by: Admin: 12/26/19 21:51 Dose: 100 mls/hr Documented by: Infusion: 12/26/19 15:00 Dose: 100 mls/hr Documented by: [email or web address] Admin: 12/26/19 14:00 Dose: 100 mls/hr Documented by: [email or web address] Infusion: 12/26/19 13:29 Dose: 100 mls/hr Documented by: [email or web address] Admin: 12/26/19 05:49 Dose: 100 mls/hr Documented by: Infusion: 12/25/19 23:07 Dose: 100 mls/hr Documented by: Admin: 12/25/19 22:07 Dose: 100 mls/hr Documented by: Infusion: 12/25/19 15:44 Dose: 100 mls/hr Documented by: [email or web address] Admin: 12/25/19 14:00 Dose: 100 mls/hr Documented by: [email or web address] Infusion: 12/25/19 07:30 Dose: 100 mls/hr Documented by: [email or web address] Admin: 12/25/19 06:27 Dose: 100 mls/hr Documented by: Infusion: 12/24/19 23:35 Dose: 100 mls/hr Documented by: [email or web address] Admin: 12/24/19 22:35 Dose: 100 mls/hr Documented by: Infusion: 12/24/19 15:00 Dose: 0 mls/hr Documented by: [email or web address] Admin: 12/24/19 14:00 Dose: 100 mls/hr Documented by: [email or web address] Infusion: 12/24/19 06:44 Dose: 0 mls/hr Documented by: [email or web address] Admin: 12/24/19 05:44 Dose: 100 mls/hr Documented by: Infusion: 12/24/19 00:05 Dose: 100 mls/hr Documented by: Admin: 12/23/19 23:04 Dose: 100 mls/hr Documented by: Cosigned by: [email or web address] Infusion: 12/23/19 15:26 Dose: 0 mls/hr Documented by: [email or web address] Admin: 12/23/19 14:26 Dose: 100 mls/hr Documented by: [email or web address] Infusion: 12/23/19 06:14 Dose: 0 mls/hr Documented by: [email or web address] Admin: 12/23/19 05:14 Dose: 100 mls/hr Documented by: Infusion: 12/22/19 22:32 Dose: 100 mls/hr Documented by: Admin: 12/22/19 21:32 Dose: 100 mls/hr Documented by: Infusion: 12/22/19 16:13 Dose: 0 mls/hr Documented by: Admin: 12/22/19 15:13 Dose: 100 mls/hr Documented by: [email or web address] Clindamycin Phosphate 600 mg/ (Dextrose) 54 mls @ 100 mls/hr IV Q6H GEORGETTE; Protocol Last Infusion: 12/27/19 12:50 Dose: 0 mls/hr Documented by: Admin: 12/27/19 12:17 Dose: 100 mls/hr Documented by: Infusion: 12/27/19 06:38 Dose: 0 mls/hr Documented by: Admin: 12/27/19 06:05 Dose: 100 mls/hr Documented by: Infusion: 12/27/19 00:21 Dose: 100 mls/hr Documented by: Admin: 12/26/19 23:48 Dose: 100 mls/hr Documented by: Infusion: 12/26/19 18:05 Dose: 100 mls/hr Documented by: Admin: 12/26/19 17:32 Dose: 100 mls/hr Documented by: [email or web address] Infusion: 12/26/19 15:46 Dose: 100 mls/hr Documented by: [email or web address] Admin: 12/26/19 15:13 Dose: 100 mls/hr Documented by: [email or web address] Lactated Ringer's (Lactated Ringers) 1,000 mls @ 50 mls/hr IV .Q20H GEORGETTE Last Admin: 12/27/19 09:38 Dose: 50 mls/hr Documented by: Infusion: 12/27/19 09:38 Dose: 50 mls/hr Documented by: Admin: 12/26/19 19:09 Dose: 50 mls/hr Documented by: [email or web address] Metoclopramide HCl (Reglan) 10 mg IV Q6 GE[facility]GET[facility] Admin: 12/27/19 12:17 Dose: 10 mg Documented by: Admin: 12/27/19 06:06 Dose: 10 mg Documented by: Admin: 12/26/19 23:47 Dose: 10 mg Documented by: Admin: 12/26/19 17:31 Dose: 10 mg Documented by: [email or web address] Admin: 12/26/19 12:00 Dose: 10 mg Documented by: Admin: 12/26/19 05:49 Dose: 10 mg Documented by: Admin: 12/26/19 00:00 Dose: 10 mg Documented by: Admin: 12/25/19 18:44 Dose: 10 mg Documented by: Admin: 12/25/19 13:00 Dose: 10 mg Documented by: Admin: 12/25/19 06:27 Dose: 10 mg Documented by: Admin: 12/24/19 23:45 Dose: 10 mg Documented by: Admin: 12/24/19 18:04 Dose: 10 mg Documented by: [email or web address] Admin: 12/24/19 12:23 Dose: 10 mg Documented by: [email or web address] Admin: 12/24/19 05:44 Dose: 10 mg Documented by: Admin: 12/24/19 00:53 Dose: 10 mg Documented by: Admin: 12/23/19 17:33 Dose: 10 mg Documented by: [email or web address] Admin: 12/23/19 11:59 Dose: 10 mg Documented by: [email or web address] Admin: 12/23/19 05:52 Dose: 10 mg Documented by: Admin: 12/23/19 00:37 Dose: 10 mg Documented by: Admin: 12/22/19 17:36 Dose: 10 mg Documented by: [email or web address] Admin: 12/22/19 12:50 Dose: 10 mg Documented by: [email or web address] Ondansetron HCl (Zofran) 4 mg IV Q4HP PRN; Protocol PRN Reason: Nausea And Vomiting Last Admin: 12/24/19 22:29 Dose: 4 mg Documented by: [email or web address] Pantoprazole Sodium (Protonix) 40 mg IV BIDAC [facility] Last Admin: 12/27/19 07:10 Dose: 40 mg Documented by: Admin: 12/26/19 17:31 Dose: 40 mg Documented by: Admin: 12/26/19 08:43 Dose: 40 mg Documented by: Admin: 12/25/19 16:45 Dose: 40 mg Documented by: Admin: 12/25/19 09:00 Dose: 40 mg Documented by: Admin: 12/24/19 18:02 Dose: 40 mg Documented by: Admin: 12/24/19 09:37 Dose: 40 mg Documented by: [email or web address] Admin: 12/23/19 17:32 Dose: 40 mg Documented by: [email or web address] Admin: 12/23/19 07:06 Dose: 40 mg Documented by: [email or web address] Admin: 12/22/19 17:36 Dose: 40 mg Documented by: RAS Sodium Chloride (Saline Flush) 10 ml IV Q8 [facility] Admin: 12/27/19 15:20 Dose: Not Given Documented by: Admin: 12/27/19 06:06 Dose: Not Given Documented by: Admin: 12/26/19 21:14 Dose: 10 ml Documented by: Admin: 12/26/19 15:14 Dose: 10 ml Documented by: Admin: 12/26/19 05:50 Dose: Not Given Documented by: Admin: 12/25/19 22:08 Dose: 10 ml Documented by: Admin: 12/25/19 14:05 Dose: 10 ml Documented by: Admin: 12/25/19 06:27 Dose: 10 ml Documented by: Admin: 12/24/19 22:29 Dose: 10 ml Documented by: Admin: 12/24/19 16:04 Dose: Not Given Documented by: Admin: 12/24/19 05:44 Dose: 10 ml Documented by: Admin: 12/24/19 00:52 Dose: Not Given Documented by: Admin: 12/23/19 14:30 Dose: Not Given Documented by: [email or web address] Admin: 12/23/19 05:16 Dose: 10 ml Documented by: Admin: 12/23/19 00:30 Dose: 10 ml Documented by: Admin: 12/22/19 14:16 Dose: Not Given Documented by: [email or web address] Shift Summary 12/27/19 05:04 Shift Summary by Dian Juarez The patient is alert and oriented times four and very pleasant with ADL assist, he is up ad gautam with SBA and voiding via urinal quantity sufficient and had one liquid BM last NOC. He received Dilaudid 1 mg four times for abdominal pain, he has a abdominal binder in place, Tegaderm to a midline incision and gauze pads covering his 2 CAM sites to the lower abdomen CDI. He is tolerating a full liquid diet well, CAM A had 5 ml and CAM B had 3 ml output of serous drainage. He received a Zazoomhos rider yesterday for a K+ level of 3.7, he received his 3rd dose of MOM during the shift and continues to received scheduled Reglan. Encouraged use of I/S while awake, has SCDs while in bed. Initialized on 12/27/19 05:04 - END OF NOTE
--- NOTE | 2019-12-28 14:58 | Operative Note ---
DATE OF OPERATION: 12/22/2019 PREOPERATIVE DIAGNOSIS: Enterocutaneous fistula with infected mesh graft of the abdominal wall. POSTOPERATIVE DIAGNOSIS: Enterocutaneous fistula with infected mesh graft of the abdominal wall. PROCEDURE: Exploratory laparotomy with explantation of mesh graft and closure of enterocutaneous fistula, placement of Vicryl mesh graft in a subfascial position. SURGEON: Jackson Lundberg M.D. FINDINGS: Two layers of mesh graft with small bowel fistula through the graft to the subcutaneous area. An abscess created between the two layers of graft which drained through the opening in the skin. DESCRIPTION OF PROCEDURE: Under general anesthesia, the patient's abdomen was prepped and draped in the sterile field. Midline incision was made with an elliptical incision around the fistulous tract. The incision was extended using electrocautery. The area of the fistulous tract was dissected down to the mesh graft. The cutaneous fistula extended down to a double layer of mesh graft. There was a large volume of purulence and stool between the two separate sheets which appeared to be two different types of graft that were placed at different times. The more superficial graft was intact and was poorly adherent. It was dissected and the margins were bluntly dissected off the fascia. Using copious irrigation, the cavity was irrigated. There was another sheet of mesh that was much older and fragmented which appeared to be directly adherent to the small bowel and omentum. That which was adherent to the omentum was dissected initially until I was able to have all of the margins of the graft until it was only adherent to the small bowel. The bowel was then freed above and below this attachment. The small bowel was then gently and bluntly dissected until it was from the mesh. Beneath the mesh, there was a small fistulous opening into a single loop of small bowel. This was cleared of all granulations, and it was felt that it could be easily closed with a TA 30 without compromising the lumen of the bowel. This was carried out. The remainder of the bowel had good integrity. Copious irrigation was carried out. All tissue that appeared to be inflammatory in origin was dissected from the inferior surface of the fascia and muscle. Once this was done, inspection of the upper and lower abdomen was carried out and ___ ___was noted. A sheet of Vicryl mesh was placed and was stapled in place using the Secure-Strap stapler. The mesh was stapled to the fascia. No permanent suture was placed. A #10 Young drain was placed over the Vicryl mesh and the muscle and fascia was then closed over the drain and the Vicryl mesh using interrupted #1 Prolene. This was a secure closure and there was no excess tension. Irrigation was carried out, and a #7 Young drain was placed in the subcutaneous tissue. Subcutaneous tissue was closed with 2-0 Monocryl. Skin was closed with leyla. Tegaderm dressing was placed. The patient tolerated the procedure well. He was awakened and transferred to the postanesthetic care unit in stable, satisfactory condition. [email or web address] Job ID: [id number] Doc ID: [id number] Jackson Lundberg M.D.
== END 2019-12-27 17:00 | disposition home or self-care (01) | DRG 908 ==
LOC: MEDSUR 04:59
PROVIDERS: ADMIT Family Medicine Adult Medicine; ATTEND Family Medicine Adult Medicine